=== PATIENT | male | born 1945 | race Hispanic/Latino ===

== ENCOUNTER 2024-02-10 08:48 | Day surgery (SDC) | payer OTHER ==
[2024-02-10] VITALS (10 sets, daily range): BP systolic 89–134; BP diastolic 54–82; PULSE 59–73; RESP 14–16; TEMP 97.2–98.1
[~2024-02-10] VITALS: Ht 182.9 cm; Wt 104.3 kg
[~2024-02-10 08:48] MED LIST: AMOX500T2 PO; CARB1TAB35 PO; ENTACAPONE PO; INSU3INS3 SQ; ISTR20TA PO; LINA290C PO; LISI10TA24 PO; METF-444 PO; SIMV5TAB58 PO; TAMS-1 PO
[2024-02-10] MEDS: 0.9%NACL 1000ML 1,000 ML IV ONE (09:04)
[2024-02-10] MEDS ORDERED: proPOFol 10 MG/ML 20ML VIAL IV ONE ×2 (10:14→10:26)
--- NOTE | 2024-02-10 11:55 | NUR ---
Patient aox3. Denies c/o pain or discomfort. Patient and Voiced understanding to GI Procedure precautions and follow up expectations. PIV discontinued with catheter tip intact. Full and complete Discharge instructions given to Patient and . All questions answered. W/C to EMS with to Home.
== END 2024-02-10 11:55 | disposition home or self-care (01) ==
LOC: ENDO 08:48 → DAH 08:48 → ENDO 11:55
PROVIDERS: ATTEND Internal Medicine Gastroenterology
DX: R93.3 Abnormal findings on diagnostic imaging of other parts of digestive tract (principal); K83.1 Obstruction of bile duct; K86.89 Other specified diseases of pancreas; I89.9 Noninfective disorder of lymphatic vessels and lymph nodes, unspecified; I10 Essential (primary) hypertension; E11.9 Type 2 diabetes mellitus without complications; G20.A1 Parkinson's disease without dyskinesia, without mention of fluctuations; Z85.07 Personal history of malignant neoplasm of pancreas; Z90.49 Acquired absence of other specified parts of digestive tract; Z98.890 Other specified postprocedural states; Z79.84 Long term (current) use of oral hypoglycemic drugs; Z79.899 Other long term (current) drug therapy
CPT/HCPCS: 43238; 86316; 36415; J7030; J2704 ×2; A4615; A4215 ×2; A4223; A4222; A4221; A4663; A4606; J3490